=== PATIENT | female | born 1985 | race Two or more races ===

== ENCOUNTER 2023-07-04 08:17 | Emergency (ER) | payer SELFPAY ==
[2023-07-04 08:24] VITALS: RESP 20; BMI 279.2
[2023-07-04] MEDS ORDERED: ALBUTEROL SO4 2.5/IPRATROPIUM 0.5 INH SOL 3 ML VIAL.NEB. NEB ONE ×3 (09:15→09:21)
[2023-07-04] MEDS ORDERED: DEXAMETHASONE 4 MG TABLET (FP) PO ONE (09:24)
[2023-07-04] MEDS ORDERED: DEXAMETHASONE 4 MG TABLET (FP) ONE (09:32)
[2023-07-04] MEDS ORDERED: ALBUTEROL SO4 HFA INHALER IH ONE ×2 (10:24→10:27)
[2023-07-04 10:33] VITALS: BP 123/81; PULSE 82; TEMP 97.7
== END 2023-07-04 10:36 | disposition home or self-care (01) ==
LOC: JER 08:17
PROC: 3E0F7GC Introduction of Other Therapeutic Substance into Respiratory Tract, Via Natural or Artificial Opening (ICD-10-PCS; principal; 2023-07-04)
PROC: 3E0F7GC Introduction of Other Therapeutic Substance into Respiratory Tract, Via Natural or Artificial Opening (ICD-10-PCS; 2023-07-04)
DX: R06.02 Shortness of breath (principal); R05.9 Cough, unspecified; R11.0 Nausea; F41.9 Anxiety disorder, unspecified; J45.901 Unspecified asthma with (acute) exacerbation; Z20.822 Contact with and (suspected) exposure to COVID-19
CPT/HCPCS: 0241U-QW; 71046-TC-FY; 84703; 99284-25